=== PATIENT | female | born 1970 ===

== ENCOUNTER 2016-09-30 21:25 | Emergency (ER) | payer OTHER ==
[2016-09-30] MEDS ORDERED: SYNTHROID175 MC1 PO (21:53)
[2016-09-30] MEDS ORDERED: GLUCOPHAGE500 M3 PO (21:56)
[2016-09-30] MEDS ORDERED: COLACE100 M1 PO (21:57)
[2016-09-30 22:28] LABS: BASO % 0.2 % (0-2); EOS % 0.4 % (0-7); HCT-HEMATOCRIT 33.3 % (34.0-49.0); HGB-HEMOGLOBIN 10.5 gm/dl (12.0-15.5); IMMATURE GRANULOCYTES ABSOLUTE 0.01 tho/cmm (0-0.03); IMMATURE GRANULOCYTES PERCENT 0.2 % (0-0.3); LYMPH % 26.7 % (20-45); LYMPH ABSOLUTE COUNT 1.2 tho/cmm (0.8-4.5); MCH (MEAN CORPUSCULAR HGB) 25.1 pg (28.0-32.0); MCHC MEAN CORPUSCULAR HGB CONC 31.5 % (32.0-36.0); MCV (MEAN CELL VOLUME) 79.5 fl (82.0-96.0); MEAN PLATELET VOLUME 9.6 cmc (9.4-12.4); MONO % 4.6 % (0-12); MONOCYTE ABSOLUTE COUNT 0.2 tho/cmm (0.0-1.2); NEUTROPHIL ABSOLUTE COUNT 3.1 tho/cmm (1.6-8.0); NEUTROPHIL-AUTOMATED 3.1 tho/cmm (1.6-8.0); NEUTROPHILS % 67.9 % (40-80); PLATELET COUNT 219 tho/cmm (150-450); RED BLOOD COUNT 4.19 mil/cmm (4.00-5.20); RED CELL DISTRIBUTION WIDTH 15.5 % (12.4-16.4); WHITE BLOOD COUNT 4.5 tho/cmm (4.0-10.0)
[2016-09-30 22:48] LABS: PREGNANCY-SERUM NEGATIVE (NEGATIVE)
[2016-09-30 22:57] LABS: ALBUMIN 3.8 g/dl (3.5-5.0); ALKALINE PHOSPHATASE 74 U/L (33-138); ALT/SGPT 20 U/L (12-78); ANION GAP 14 mmol/L (0-20); AST/SGOT 11 U/L (10-40); BILIRUBIN,TOTAL 0.3 mg/dl (0-1.5); BLOOD UREA NITROGEN 9 mg/dl (6-24); CALCIUM 8.9 mg/dl (8.5-10.5); CARBON DIOXIDE-VENOUS 26 mmol/L (22-32); CHLORIDE 104 mmol/l (96-110); CREATININE 0.66 mg/dl (0.50-1.10); GLUCOSE 97 mg/dL (70-110); POTASSIUM 4.6 mmol/L (3.7-5.1); SODIUM 139 mmol/L (135-145); eGFR VALUE FOR BLACK >90 mL/Min
== END 2016-09-30 22:30 ==
LOC: EDMED 21:25
PROVIDERS: Emergency Medicine
DX: Z77.21 Contact with and (suspected) exposure to potentially hazardous body fluids (principal); E03.9 Hypothyroidism, unspecified; Z88.0 Allergy status to penicillin; Z88.2 Allergy status to sulfonamides; Z79.899 Other long term (current) drug therapy